=== PATIENT | female | born 1990 | race African-American/Black ===

== ENCOUNTER 2021-04-23 03:19 | Emergency (ER) | payer MEDICAID ==
[~2021-04-23] VITALS: Ht 175.3 cm; Wt 89.0 kg
[2021-04-23] MEDS ORDERED: FAMOTIDINE 20MG TABLET PO ONE (03:45)
[2021-04-23] MEDS ORDERED: LIDOCAINE HCL 20 MG/ML 100ML BOTTLE PO NR (03:45)
[2021-04-23] MEDS ORDERED: VISCOUS LIDOCAINE 2% 15 ML UDC PO ONE (03:45)
[2021-04-23] MEDS ORDERED: MAGNESIUM/ALUMINUM HYDROXIDE/SIMETHICONE 30ML UDC PO ONE (03:45)
[2021-04-23 05:16] VITALS: BP 110/61
[2021-04-23] MEDS ORDERED: ONDANSETRON 4MG ODT PO ONE (05:30)
== END 2021-04-23 05:40 | disposition home or self-care (01) ==
LOC: ER 03:19
DX: R19.7 Diarrhea, unspecified (principal); R11.2 Nausea with vomiting, unspecified
CPT/HCPCS: 81025; 99284; Q0162

== ENCOUNTER 2021-07-21 19:37 | Emergency (ER) | payer MEDICAID, OTHER ==
[~2021-07-21] VITALS: Ht 175.3 cm; Wt 86.0 kg
[2021-07-21 20:16] VITALS: BP 100/65
== END 2021-07-21 23:25 | disposition left against medical advice (07) ==
LOC: ER 19:37
DX: Z53.21 Procedure and treatment not carried out due to patient leaving prior to being seen by health care provider (principal); I49.9 Cardiac arrhythmia, unspecified
CPT/HCPCS: 93005

== ENCOUNTER 2023-11-29 14:46 | Emergency (ER) | payer MEDICAID, OTHER ==
[~2023-11-29] VITALS: Ht 175.3 cm; Wt 91.0 kg
[2023-11-29 14:51] VITALS: O2SAT 99
[2023-11-29] MEDS: SODIUM CHLORIDE 0.9% 1,000 ML IV ONE (15:34)
[2023-11-29 15:48] VITALS: BP 115/59; PULSE 86; RESP 16; TEMP 98.1
== END 2023-11-29 15:50 | disposition left against medical advice (07) ==
LOC: ER 14:46
DX: O99.351 Diseases of the nervous system complicating pregnancy, first trimester (principal); Z3A.01 Less than 8 weeks gestation of pregnancy
CPT/HCPCS: 99283; 93005; J7030

== ENCOUNTER 2024-05-05 01:14 | Emergency (ER) | payer MEDICAID, OTHER ==
[~2024-05-05] VITALS: Ht 175.3 cm; Wt 89.6 kg
[2024-05-05 01:24] VITALS: BP 125/47; PULSE 63; RESP 18; TEMP 98.1; O2SAT 100; O2SAT 99
[2024-05-05] MEDS ORDERED: SULF1TAB48 MT (04:17)
[2024-05-05] MEDS ORDERED: CEPH500C2 MT (04:17)
[2024-05-05] MEDS ORDERED: NAPR-681 PO (04:17)
== END 2024-05-05 04:24 | disposition home or self-care (01) ==
LOC: ER 01:14
DX: N61.0 Mastitis without abscess (principal)
CPT/HCPCS: 71045; 93005; 99283